=== PATIENT | female | born 1955 | race Caucasian/White ===

== ENCOUNTER 2022-04-21 16:51 | Emergency (ER) | payer OTHER ==
[~2022-04-21] VITALS: Ht 156.2 cm; Wt 78.0 kg
[2022-04-21 17:29] VITALS: BP 135/71
[2022-04-21] MEDS ORDERED: TOMOMETER 1 DEV DEV MC ONE (18:24)
[2022-04-21] MEDS: FLUORESCEIN OPTH STRIP 1 MG OP ONE (18:43)
[2022-04-21] MEDS: TETRACAINE HCL/PF 0.5% OPTH 4 ML BTL OP ONE (18:43)
[2022-04-21] MEDS ORDERED: KETO5DRO2 OP (18:46)
[2022-04-21] MEDS ORDERED: CARB15SO23 OP (18:46)
--- NOTE | 2022-04-21 18:49 | NUR ---
PT LEFT C/O LEFT EYE REDNESS AND BLURRY VISION SINCE THIS AM
[2022-04-21] MEDS ORDERED: [UNRECOGNIZED DRUG - CODE] LEFT EYE (18:56)
--- NOTE | 2022-04-21 19:14 | NUR ---
Patient discharged with v/s stable. Written and verbal after care instructions given and explained. Patient verbalized understanding. Ambulatory with steady gait. All questions addressed prior to discharge. Advised to follow up with PMD.
== END 2022-04-21 19:10 | disposition home or self-care (01) ==
LOC: MED 16:51
DX: H10.12 Acute atopic conjunctivitis, left eye (principal); Z79.899 Other long term (current) drug therapy; Z79.1 Long term (current) use of non-steroidal anti-inflammatories (NSAID); Z88.0 Allergy status to penicillin; Z88.1 Allergy status to other antibiotic agents; Z88.8 Allergy status to other drugs, medicaments and biological substances
CPT/HCPCS: 99283

== ENCOUNTER 2022-07-27 08:11 | Day surgery (SDC) | payer OTHER ==
[~2022-07-27] VITALS: Ht 165.1 cm; Wt 79.8 kg
[~2022-07-27 08:11] MED LIST: CARB15SO23 OP; KETO5DRO2 OP; [UNRECOGNIZED DRUG - CODE] LEFT EYE
[2022-07-27] MEDS ORDERED: diphenhydrAMINE 50 MG/ML VIAL ONE (09:00)
[2022-07-27] MEDS ORDERED: fentaNYL citrate 0.05 MG/ML VIAL ONE (09:00)
[2022-07-27] MEDS ORDERED: MIDAZOLAM 5 MG/5 ML VIAL ONE (09:01)
[2022-07-27] MEDS ORDERED: fentaNYL citrate 0.05 MG/ML VIAL IVP ONE (09:30)
[2022-07-27] MEDS ORDERED: MIDAZOLAM 5 MG/5 ML VIAL IV ONE (09:30)
== END 2022-07-27 10:24 | disposition home or self-care (01) ==
LOC: MDS 08:11 → MMU 08:12 → MDS 10:24
PROVIDERS: ATTEND Internal Medicine Gastroenterology
DX: R13.10 Dysphagia, unspecified (principal); K21.9 Gastro-esophageal reflux disease without esophagitis; K44.9 Diaphragmatic hernia without obstruction or gangrene; I10 Essential (primary) hypertension; E11.9 Type 2 diabetes mellitus without complications; M06.9 Rheumatoid arthritis, unspecified; F32.A Depression, unspecified; M81.0 Age-related osteoporosis without current pathological fracture; Z90.49 Acquired absence of other specified parts of digestive tract; Z98.890 Other specified postprocedural states; E78.00 Pure hypercholesterolemia, unspecified; Z88.0 Allergy status to penicillin; Z88.1 Allergy status to other antibiotic agents; Z79.899 Other long term (current) drug therapy
CPT/HCPCS: 43239; 43248; J2250; J3010; J1200

== ENCOUNTER 2022-11-02 11:19 | Day surgery (SDC) | payer OTHER ==
[~2022-11-02] VITALS: Ht 165.1 cm; Wt 82.6 kg
[2022-11-02] MEDS ORDERED: diphenhydrAMINE 50 MG/ML VIAL ONE (12:08)
[2022-11-02] MEDS ORDERED: MIDAZOLAM 2 MG/2 ML VIAL ONE (12:09)
[2022-11-02] MEDS ORDERED: fentaNYL citrate 0.05 MG/ML VIAL ONE (12:09)
[2022-11-02] MEDS ORDERED: LIDOCAINE 2% 100 MG/5 ML UJET TP ONE (12:09)
[2022-11-02] MEDS ORDERED: MIDAZOLAM 2 MG/2 ML VIAL IVP ONE (12:55)
[2022-11-02] MEDS ORDERED: fentaNYL citrate 0.05 MG/ML VIAL IVP ONE (12:55)
[2022-11-02] MEDS ORDERED: diphenhydrAMINE 50 MG/ML VIAL IVP ONE (12:55)
== END 2022-11-02 14:00 | disposition home or self-care (01) ==
LOC: MDS 11:19 → MMU 11:24 → MDS 14:00
PROVIDERS: ATTEND Internal Medicine Gastroenterology
DX: Z12.11 Encounter for screening for malignant neoplasm of colon (principal); Z86.010 Personal history of colon polyps; K64.8 Other hemorrhoids; I10 Essential (primary) hypertension; E78.5 Hyperlipidemia, unspecified; K21.9 Gastro-esophageal reflux disease without esophagitis; E66.9 Obesity, unspecified; M81.0 Age-related osteoporosis without current pathological fracture; Z90.49 Acquired absence of other specified parts of digestive tract; Z68.30 Body mass index [BMI] 30.0-30.9, adult; Z88.1 Allergy status to other antibiotic agents; Z88.8 Allergy status to other drugs, medicaments and biological substances; Z88.0 Allergy status to penicillin; Z79.84 Long term (current) use of oral hypoglycemic drugs; Z79.899 Other long term (current) drug therapy
CPT/HCPCS: 45378; J1200; J2250; J3010